=== PATIENT | female | born 1940 | race Caucasian/White ===

== ENCOUNTER → 2018-10-26 | Outpatient (CLI) | payer MEDICARE, OTHER ==
--- NOTE | 2018-10-26 14:03 | RADRPT ---
Echocardiogram Report Patient Name: BERTRAND MENDOZAPatient ID: [id number] : 1940 (78y 6m)Study Date: 10/26/2018 10:46:27 AM Gender: FAccession #: [id number] Tech: Clint Rivsa OSMAR Location: Radiology Ref.Physician: AYE ARIAS Height(Cm): BSA: Weight(Kg): Quality: AdequateAccount #: Procedures: Echocardiographic Report: Transthoracic echocardiogram with complete 2D, M-Mode, and doppler examination. Indications: R/O Pulmonary Hypertension, and Shortness of breath. Measurements: 2D/M Mode Doppler Measurement Value Normal Range Measurement Value Normal Range LVIDd 2D 3.2 [ 3.8 - 5.2 ] cm AV Peak Dayron 175.0 [ 100.0 - 170.0 ] cm/sec LVIDs 2D 1.9 [ 2.2 - 3.5 ] cm LVOT Mean Dayron 103.0 [ 60.0 - 80.0 ] cm/sec LVPWd 2D 1.0 [ 0.6 - 0.9 ] cm MV E Peak Dayron 84.1 [ 60.0 - 130.0 ] cm/sec IVSd 2D 1.1 [ 0.6 - 0.9 ] cm MV A Peak Dayron 110.5 [ 100.0 - 120.0 ] cm/sec AoR Diam 2D 2.5 [ 2.3 - 3.1 ] cm TR Peak Dayron 226.5 [ 100.0 - 280.0 ] cm/sec LA Dimen 2D 2.7 [ 2.7 - 3.8 ] cm TR Peak PG 22.0 mmHg RVSP 25.0 [ 10.0 - 36.0 ] mmHg RA Pressure 3.0 mmHg Findings: Left Ventricle: Normal left ventricular systolic function. Normal left ventricular cavity size. Mild concentric left ventricular hypertrophy. Ejection fraction is visually estimated at 60-65 %. Tissue Doppler/Mitral Doppler indices are consistent with impaired relaxation (Stage I diastolic dysfunction). Right Ventricle: Normal right ventricular size. Normal right ventricular systolic function. Left Atrium: The left atrium is normal in size. Right Atrium: The right atrium is normal in size. Mitral Valve: Mild mitral annular calcification. Trace mitral regurgitation. Aortic Valve: No hemodynamically significant aortic stenosis by doppler. Aortic cusps appear mildly calcified. Trace to mild aortic valve regurgitation. Tricuspid Valve: Normal appearance of the tricuspid valve. Estimated peak PA systolic pressure 25 mmHg. There is trace tricuspid regurgitation. Pulmonic Valve: Normal pulmonic valve appearance. Pericardium: Normal pericardium with no significant pericardial effusion. Aorta: Normal aortic root. IVC: Normal size and normal respiratory collapse consistent with normal right atrial pressure. Conclusions: Normal left ventricular systolic function. Normal left ventricular cavity size. Mild concentric left ventricular hypertrophy. Ejection fraction is visually estimated at 60-65 %. Tissue Doppler/Mitral Doppler indices are consistent with impaired relaxation (Stage I diastolic dysfunction). Mild mitral annular calcification. Trace mitral regurgitation. No hemodynamically significant aortic stenosis by doppler. Aortic cusps appear mildly calcified. Trace to mild aortic valve regurgitation. Normal appearance of the tricuspid valve. Estimated peak PA systolic pressure 25 mmHg. There is trace tricuspid regurgitation. Electronically Signed By: Rodri Gr 2018-10-26 14:02:48 PDT
== END | disposition home or self-care (01) ==
LOC: PUL 08:37
PROVIDERS: ATTEND Specialist
DX: M34.9 Systemic sclerosis, unspecified (principal); R06.02 Shortness of breath
CPT/HCPCS: 93306; 94010; 94726; 94729